=== PATIENT | female | born 1945 | race Caucasian/White ===

== ENCOUNTER → 2017-07-15 13:47 | Outpatient (CLI) | payer MEDICARE, OTHER ==
[2013-05-04 10:39] VITALS: BMI 19.2
[~2017-07-15 13:47] MED LIST: CRESTOR10 MG PO; ESTRACE 0.5 MG0.5 MG PO; PRILOSEC20 MG PO
== END | disposition home or self-care (01) ==
LOC: D.US 07-14 14:30
DX: R09.89 Other specified symptoms and signs involving the circulatory and respiratory systems (principal)

== ENCOUNTER → 2018-07-16 09:00 | Outpatient (CLI) | payer MEDICARE, OTHER ==
[2013-05-04 10:39] VITALS: BMI 19.2
== END | disposition home or self-care (01) ==
LOC: D.RAD 09:00
PROVIDERS: ATTEND Family Medicine
DX: K27.9 Peptic ulcer, site unspecified, unspecified as acute or chronic, without hemorrhage or perforation (principal); K20.9 Esophagitis, unspecified

== ENCOUNTER → 2018-12-24 13:25 | Outpatient (CLI) | payer MEDICARE, OTHER ==
[2013-05-04 10:39] VITALS: BMI 19.2
== END | disposition home or self-care (01) ==
LOC: D.LABREF 13:25
PROVIDERS: ATTEND Surgery
DX: N63.0 Unspecified lump in unspecified breast (principal); Z98.82 Breast implant status

== ENCOUNTER 2019-04-28 21:52 | Emergency (ER) | payer MEDICARE, OTHER ==
[~2019-04-28] VITALS: Ht 157.5 cm; Wt 47.7 kg
[2019-04-28 22:07] VITALS: Ht 157.5 cm; Wt 47.7 kg
[2019-04-28] MEDS ORDERED: HYDROXYZINE HCL10 MG (22:07)
[2019-04-28 23:11] LABS: BASOPHILS 0.4 % (0-2); EOSINOPHILS 2.1 % (0-7); HEMATOCRIT 39.8 % (36.0-48.0); HEMOGLOBIN 13.4 g/dL (12-16); IMMATURE GRANULOCYTES 0.2 % (0-5); LYMPHOCYTES 36.5 % (15-50); MCH 30.9 pg (26.0-34.0); MCHC 33.7 g/dL (31.0-37.0); MCV 91.7 fL (80.0-100.0); MEAN PLATELET VOLUME 10.1 fL (7.4-10.4); MONOCYTES 8.8 % (2-11); PLATELET COUNT 225 10x3/uL (130-400); RBC 4.34 10x6/uL (4.00-5.40); RDW 12.4 % (11.5-14.5); WBC 4.8 10x3/uL (4.8-10.8)
[2019-04-28 23:19] LABS: CALC OSMOLALITY 280 mosm/kg (275-300); CALCIUM 8.5 mg/dL (8.5-10.1); CARBON DIOXIDE 27.9 mmol/L (21.0-32.0); CHLORIDE - SERUM 107 mmol/L (98-107); CREATININE - SERUM 0.7 mg/dL (0.6-1.3); GLUCOSE 104 mg/dL (74-106); POTASSIUM - SERUM 4.1 mmol/L (3.5-5.1); SODIUM 141 mmol/L (136-145); UREA NITROGEN 13 mg/dL (7-18); eGFR NON AFRICAN AMERICAN 87 mL/min (90-120)
[2019-04-28 23:34] LABS: ALBUMIN 3.4 g/dL (3.4-5.0); ALKALINE PHOSPHATASE 42 U/L (46-116); ALT (SGPT) 23 U/L (10-68); BILIRUBIN - TOTAL 0.18 mg/dL (0.2-1.3); CKMB 1.9 U/L (0.0-3.6); CREATINE KINASE 57 UL (21-215); PROTEIN - SERUM 6.7 g/dL (6.4-8.2)
[2019-04-28 23:36] LABS: TROPONIN-I < 0.017 ng/mL (0.000-0.060)
[2019-04-28] MEDS ORDERED: CATAPRES0.1 MG PO (23:40)
[2019-04-28 23:49] VITALS: BP 158/66
== END 2019-04-28 23:49 | disposition home or self-care (01) ==
LOC: D.ER 21:52
PROVIDERS: Emergency Medicine
DX: I10 Essential (primary) hypertension (principal)

== ENCOUNTER 2019-05-08 02:13 | Emergency (ER) | payer MEDICARE, OTHER ==
[~2019-05-08] VITALS: Ht 157.5 cm; Wt 48.2 kg
[~2019-05-08 02:13] MED LIST changes: +CATAPRES0.1 MG PO; +HYDROXYZINE HCL10 MG
[2019-05-08 02:16] VITALS: Ht 157.5 cm; Wt 48.2 kg
[2019-05-08] MEDS ORDERED: LEXAPRO10 MG PO (02:18)
[2019-05-08] MEDS ORDERED: BAYER CHEWABLE81 MG PO (02:19)
[2019-05-08 02:38] LABS: BASOPHILS 0.4 % (0-2); CALC OSMOLALITY 277 mosm/kg (275-300); CALCIUM 8.2 mg/dL (8.5-10.1); CARBON DIOXIDE 26.8 mmol/L (21.0-32.0); CHLORIDE - SERUM 104 mmol/L (98-107); CREATININE - SERUM 0.8 mg/dL (0.6-1.3); EOSINOPHILS 1.5 % (0-7); GLUCOSE 103 mg/dL (74-106); HEMATOCRIT 35.9 % (36.0-48.0); HEMOGLOBIN 12.3 g/dL (12-16); IMMATURE GRANULOCYTES 0.2 % (0-5); LYMPHOCYTES 29.4 % (15-50); MCH 31.1 pg (26.0-34.0); MCHC 34.3 g/dL (31.0-37.0); MCV 90.9 fL (80.0-100.0); MEAN PLATELET VOLUME 10.3 fL (7.4-10.4); MONOCYTES 11.7 % (2-11); NEUTROPHILS 56.8 % (40-80); PLATELET COUNT 205 10x3/uL (130-400); RBC 3.95 10x6/uL (4.00-5.40); RDW 12.3 % (11.5-14.5); SODIUM 139 mmol/L (136-145); UREA NITROGEN 13 mg/dL (7-18); WBC 4.5 10x3/uL (4.8-10.8); eGFR NON AFRICAN AMERICAN 75 mL/min (90-120)
[2019-05-08] MEDS ORDERED: BENICAR HCT 201 EAC1 PO (02:39)
[2019-05-08] MEDS ORDERED: ATIVAN1 MG PO (02:39)
[2019-05-08 02:45] LABS: ALBUMIN 3.3 g/dL (3.4-5.0); ALKALINE PHOSPHATASE 37 U/L (30-120); ALT (SGPT) 24 U/L (10-68); BILIRUBIN - TOTAL 0.34 mg/dL (0.2-1.3); PROTEIN - SERUM 6.2 g/dL (6.4-8.2)
[2019-05-08 03:07] LABS: APPEARANCE CLEAR (CLEAR); BILIRUBIN NEGATIVE (NEGATIVE); COLOR YELLOW (YELLOW); GLUCOSE NEGATIVE (NEGATIVE); KETONE SMALL mg/dL (NEGATIVE); NITRITE NEGATIVE (NEGATIVE); PROTEIN NEGATIVE (NEGATIVE); UROBILINOGEN NORMAL (NORMAL)
[2019-05-08 05:40] VITALS: BP 133/66
== END 2019-05-08 05:54 | disposition home or self-care (01) ==
LOC: D.ER 02:13
PROVIDERS: Emergency Medicine
DX: I10 Essential (primary) hypertension (principal)

== ENCOUNTER 2019-05-11 16:10 | Emergency (ER) | payer MEDICARE, OTHER ==
[~2019-05-11] VITALS: Ht 157.5 cm; Wt 47.7 kg
[~2019-05-11 16:10] MED LIST changes: +ATIVAN1 MG PO; +BAYER CHEWABLE81 MG PO; +BENICAR HCT 201 EAC1 PO; +LEXAPRO10 MG PO
[2019-05-11 16:37] VITALS: BP 153/58; Ht 157.5 cm; Wt 47.7 kg
== END 2019-05-11 18:33 | disposition home or self-care (01) ==
LOC: D.ER 16:10
DX: F41.9 Anxiety disorder, unspecified (principal); K21.9 Gastro-esophageal reflux disease without esophagitis

== ENCOUNTER → 2019-06-07 13:04 | Outpatient (CLI) | payer MEDICARE, OTHER ==
[2019-05-11 16:37] VITALS: BMI 19.2
--- NOTE | ~2019-06-07 | ST ---
PATIENT:LEE REHMAN MEDICAL RECORD: [id number] SEX: F LOCATION:[facility] ORDER #: ADMISSION DATE: 06/07/19 AGE OF PATIENT: 74 REFERRING PHYSICIAN: INTERPRETING PHYSICIAN: RADHA MOREIRA MD DATE OF SERVICE: 06/07/2019 PROCEDURE: Treadmill stress test. Baseline ECG is normal. Exercised for 6 minutes 37 seconds on Breezy protocol. Maximum heart rate of 152 beats per minute, greater than 85% maximum predicted. No ECG change for ischemia. No symptoms of ischemia. Normal blood pressure response to exercise. No arrhythmias noted. Good exercise tolerance for age. TRANSINT:[id number] Voice Confirmation ID: [id number] DOCUMENT ID: [id number] RADHA MOREIRA MD CC: [id number] DICTATION DATE: 06/08/19 154 EXHAUST EQUIPMENT OPERATOR: 06/09/19 0738 DEP CLI 06/07/19 [id number] [place] [address]
--- NOTE | 2019-06-08 13:11 | EC ---
PATIENT:LEE REHMAN DATE OF SERVICE: 06/07/19 SEX: F MEDICAL RECORD: [id number] DATE OF : 49 LOCATION:[facility] AGE OF PATIENT: 74 ADMISSION DATE: 06/07/19 REFERRING PHYSICIAN: INTERPRETING PHYSICIAN: RADHA MOREIRA MD ECHOCARDIOGRAM REPORT ECHO CHARGES 4 ECHO COMPLETE Date: 06/07/19 CLINICAL DIAGNOSIS: HTN/HEART MURMUR/PALPITATIONS/DYSPNEA ON EXERTION ECHOCARDIOGRAPHIC MEASUREMENTS (adult normal given) AC root (d.<3.7cm) 2.5 cm LV Septum d (<1.2 cm> 0.9 cm Valve Excursion 1.2 cm LV Septum (systole) 1.2 cm Left Atria (s.<4.0cm> 2.6 cm LVPW d(<1.2cm) 1.0 cm RV (d.<2.3cm) 2.4 cm LVPW (sytole) 1.9 cm LV diastole(<5.6CM) 3.2 cm MV E-F(>70mm/sec) cm LV systole 1.9 cm LVOT Diameter 1.6 cm MV exc.(>10mm) 1.1 cm Est.ejection fraction (50-75%) % DOPPLER: LVIT cm/sec A 75.0 cm/sec E 93.0 cm/sec LA cm/sec RVSP 26 mmHg LVOT 103 cm/sec AOP1/2T m/s Asc. Ao 99 cm/sec RVOT 123 cm/sec RA cm/sec PA 138 cm/sec AV Gradient Peak 3.93 mmHg AV Mean 1.98 mmHg AV Area 2.1 cm MV Gradient Peak 4.25 mmHg MV Mean 2.04 mmHg MV Area cm COMMENTS: Ring Conductor: 2 STEVAN STEPHENSON Medical Administrative: 3 Dr. Hoang TAPE# PACS Pericardial Effusion N DATE OF SERVICE: Adequate 2D, color flow imaging, spectral Doppler, and M-Mode No LVH. LV internal dimensions are normal. Wall motion is normal. EF is greater than or equal to 55%. Aortic valve is tricuspid. No evidence of stenosis by Doppler interrogation. Left atrium is normal at 3.6. Mitral shows no prolapse. Mild MR. Right-sided chambers are grossly normal. Mild TR. ECHOCARDIOGRAM REPORT [id number] LEE REHMAN TRANSINT:[id number] Voice Confirmation ID: [id number] DOCUMENT ID: [id number] RADHA MOREIRA MD at 1311 CC: [id number] DICTATION DATE: 06/07/19 1508 CUSTOMER ACCOUNT ADMINISTRATOR: 06/07/19 2350 DEP CLI 06/07/19 [id number] [place] [address]
== END | disposition home or self-care (01) ==
LOC: D.HCCECHO 13:04
PROVIDERS: ATTEND Internal Medicine Interventional Cardiology
DX: I10 Essential (primary) hypertension (principal); R06.09 Other forms of dyspnea

== ENCOUNTER → 2020-07-12 20:09 | Outpatient (CLI) | payer MEDICARE, OTHER ==
[2019-05-11 16:37] VITALS: BMI 19.2
[2020-07-12 20:16] LABS: BASOPHILS 0.8 % (0-2); EOSINOPHILS 4.1 % (0-7); HEMATOCRIT 42.5 % (36.0-48.0); HEMOGLOBIN 13.6 g/dL (12-16); LYMPHOCYTE ABS# 1.44 10x3/uL (1.18-3.74); LYMPHOCYTES 36.8 % (15-50); MCH 30.6 pg (26.0-34.0); MCV 95.5 fL (80.0-100.0); MEAN PLATELET VOLUME 10.7 fL (7.4-10.4); MONOCYTES 12.8 % (2-11); NEUTROPHIL ABS# 1.78 10x3/uL (1.56-6.13); NEUTROPHILS 45.5 % (40-80); RBC 4.45 10x6/uL (4.00-5.40); RDW 13.5 % (11.5-14.5); WBC 3.9 10x3/uL (4.8-10.8)
[2020-07-12 20:34] LABS: PLATELET COUNT 266 10x3/uL (130-400)
[2020-07-12 20:54] LABS: ALBUMIN 3.8 g/dL (3.4-5.0); ANION GAP 14.7 mmol/L (8-16); BILIRUBIN - TOTAL 0.33 mg/dL (0.2-1.3); CHOL - HDL RATIO 3.2 ratio (2.3-4.1); CREATININE - SERUM 0.9 mg/dL (0.6-1.3); LDL-HDL RATIO 1.9 ratio (1.5-3.5); POTASSIUM - SERUM 4.7 mmol/L (3.5-5.1); PROTEIN - SERUM 6.5 g/dL (6.4-8.2); THYROID STIMULATING HORMONE 1.34 uIU/mL (0.36-3.74)
== END | disposition home or self-care (01) ==
LOC: D.LABREF 20:09
DX: I10 Essential (primary) hypertension (principal)